=== PATIENT | male | born 1975 | race Caucasian/White ===

== ENCOUNTER 2019-12-28 16:22 | Emergency (ER) | payer BC, OTHER ==
[~2019-12-28] VITALS: Ht 182.9 cm; Wt 79.5 kg
[2019-12-28] MEDS ORDERED: methylPREDNISolone 125MG 2ML VIAL IV ONE (17:00)
[2019-12-28] MEDS ORDERED: ceFAZolin SOD 1 GM in D5W MINI-BAG PLUS 50 ML IV ONE (17:00)
[2019-12-28] MEDS ORDERED: BOOSTRIX/ADACEL VACCINE (DIPHTH/PERTUSS/ACELL/TETANUS) 0.5ML SYR IM ONE (17:15)
[2019-12-28 17:40] LABS: BASO % 0.2 % (0.0-1.0); EOS # 0.3 10^3/uL (0.0-0.5); EOS % 3.2 % (0.0-3.0); HEMATOCRIT 46.4 % (42.0-52.0); HEMOGLOBIN 15.6 g/dl (13.5-17.5); LYMPH # 1.7 10^3/uL (1.5-5.0); LYMPH % 19.6 % (24.0-44.0); MEAN CORPUSCULAR HEMOGLOBIN 29.8 pg (27.0-33.0); MEAN CORPUSCULAR HGB CONC 33.6 g/dl (32.0-36.5); MEAN CORPUSCULAR VOLUME 88.7 fl (80.0-96.0); MONO # 1.1 10^3/uL (0.0-0.8); MONO % 12.6 % (0.0-5.0); NEUTROPHILS # 5.4 10^3/uL (1.5-8.5); NEUTROPHILS % 64.2 % (36.0-66.0); PLATELET COUNT, AUTOMATED 297 10^3/uL (150-450); RED BLOOD COUNT 5.23 10^6/uL (4.30-6.10); WHITE BLOOD COUNT 8.5 10^3/uL (4.0-10.0)
[2019-12-28 18:06] LABS: ERYTHROCYTE SEDIMENTATION RATE 18 mm/hr (0-15)
[2019-12-28] MEDS ORDERED: DIPH25CA32 PO (18:53)
[2019-12-28] MEDS ORDERED: KEFL500C17 PO (18:53)
[2019-12-28] MEDS ORDERED: MEDR4PAK PO (18:53)
[2019-12-28 19:04] VITALS: BP 119/83
== END 2019-12-28 19:06 | disposition home or self-care (01) ==
LOC: M ED 16:22
DX: L03.114 Cellulitis of left upper limb (principal); F12.20 Cannabis dependence, uncomplicated
CPT/HCPCS: 85025; 85652; 86140; 90471; 90715; 96365; 96375; 99284; J0690; J2930